=== PATIENT | male | born 1950 | race Caucasian/White ===

== ENCOUNTER 2019-10-07 18:14 | Inpatient (IN) ==
[2019-10-07] MEDS ORDERED: DOXYCYCLINE HYCLATE 100 MG in DEXTROSE 5% 100 ML IV STA (18:45)
[2019-10-07] MEDS ORDERED: ACETAMINOPHEN 1,000 MG/100 ML VIAL IV STA (18:45)
[2019-10-07] MEDS ORDERED: cefTRIAXone SODIUM 2,000 MG/70 ML BAG IV STA (18:45)
[2019-10-07] MEDS ORDERED: SODIUM CHLORIDE 0.9% 1000ML 2,000 ML IV ONE (18:48)
--- NOTE | 2019-10-07 18:55 | Emergency Department Note ---
Impression & Plan Sepsis, Transaminitis, Elevated erythrocyte sedimentation rate, Elevated C- reactive protein ED Provider Note NAME: KARYNA SALEH AGE: 69 SEX: M ARRIVES VIA: Walk-In INFORMANT: Patient, ED PROVIDER(S): Gabriele Damon MD CHIEF COMPLAINT: Fever x 2 weeks. 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 He does report having a CT scan of his abdomen on Wednesday as well but the report was not yet submitted on [facility]. He reports mild congestion but no productive cough or chest pain. He does report finding ticks on his person in the past month but not necessarily attached and certainly not on for a prolonged period of time. He reports that in his clinic his team has made an effort that he has not had to see patients with flulike symptoms with suspicion for COVID-19 and therefore he denies any known contacts with individuals diagnosed with COVID-19. On arrival the patient is fatigued appearing but no acute distress, with a temperature of 37.8, heart rate in the 110s, and hypotension 89/57. The patient appears clinically dry. Abdomen is benign. EKG without overt acute ischemia. Chest x- ray with increased peribronchial markings without focal infiltrates per my review. WBC 5.2 within normal limits. H/H 12.2/36 decreased but approximate to values in [facility] system. Platelets 149 improved from 100 on 09/27 and [facility] system. ESR and CRP are both elevated at 57 and 18, respectively, and are nonspecific. Chemistry without acidosis. BUN 23 consistent with the patient's clinically dry appearance. Lactate within normal limits. ALT is newly elevated at 120. However total bili Nick and AST within normal limits. Troponin 0.026, within normal limits. Lipase within normal limits. Pro calcitonin 0.4 is reassuring. Lyme screen was negative. COVID 19 PCR negative. Flu negative. Plasma smear review is pending and DNA test will be sent if negative. Given the patient's recent leukopenia and thrombocytopenia now with mild transaminitis with history of tick exposures there is suspicion for potential anaplasmosis. Patient was treated empirically on arrival with ceftriaxone and doxycycline. Of note we were able to obtain the CT report from [facility] which was read today and did show distended gallbladder that could represent early cholecystitis. However the patient has a negative Herrera sign. Moreover given the patient's normal bilirubin this is thought to be less likely. A formal gallbladder ultrasound was ordered and per preliminary stat read report was not consistent with cholecystitis. Additional findings noted below. On reevaluation the patient's vital signs were improved though patient still feeling unwell. Given the patient's prolonged illness of unclear etiology reasonable to admit the patient for further management. Case was discussed with Dr. De Jesus, [facility] hospitalist, who will evaluate the patient for admission. Triage Nursing notes reviewed and agree them. Additional history obtained from [facility] record. Prior medical records reviewed Vital Signs: reviewed and remarkable for hypotension. Differential diagnosis: Sepsis, UTI, pneumonia, metabolic, electrolyte abnormalities, cardiac sources, intracerebral event, toxicologic, neurologic, as well as other pathologies. ER treatment provided: See below. Diagnostics interpreted by me: ECG: Sinus tachycardia, 102 bpm, no ectopy, no overt ST elevation or depression, QTC 445, QRS 96. Cardiac Monitoring: An order for continuous cardiac monitoring was placed and demonstrated sinus tachycardia, 102 bpm, no ectopy. Laboratory studies: See below Imaging studies: Chest x-ray: increased monica-bronchial markings, no focal infiltrates. STATRAD: PreliminaryFindingsOnly See Final Report For Complete Findings US GALLBLADDER: There is a 1 cmsimple cyst in the left lobe of the liver. The liver is enlarged measuring 20.4 cmwith mildlyincreased echogenicitysuggesting mild fatty infiltration. The portal vein is patent with normal direction of flow. The common bile duct is upper limits of normal measuring 9 mm. The gallbladder is fullydistended with no stones, wall thickening, or surrounding fluid. Sonographic Murphysign is negative. The right kidneymeasures 12.4 cmwith mildlyincreased renal cortical echogenicitysuggesting some component of renal insufficiency. No hydronephrosis or mass is seen. Radiologist: Sohan Maynard MD Study ready at 22:31 and initial results transmitted at 22:46 Consultation(s): Case was discussed with Dr. De Jesus, [facility] hospitalist, who will evaluate the patient for admission. 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 He does report having a CT scan of his abdomen on Wednesday as well but the report was not yet submitted on [facility]. He reports mild congestion but no productive cough or chest pain. He does report finding ticks on his person in the past month but not necessarily attached and certainly not on for a prolonged period of time. He reports that in his clinic his team has made an effort that he has not had to see patients with flulike symptoms with suspicion for COVID-19 and therefore he denies any known contacts with individuals diagnosed with COVID-19. ROS: See above HPI for pertinent positives & negatives. A total of 10 systems reviewed and were otherwise negative. PAST MEDICAL HISTORY:See Below PAST SURGICAL HISTORY:See Below FAMILY HISTORY:See Below SOCIAL HISTORY:See Below HOME MEDICATIONS:See Below ALLERGIES:See Below VITALS:See Below PHYSICAL EXAMINATION: GENERAL: Awake, alert, fatigued-appearing, in no distress HENT: Normocephalic, atraumatic. Oropharynx with dry mucous membranes and otherwise unremarkable. EYES: Normal conjunctiva. Sclera non-icteric. NECK: Supple. No nuchal rigidity. FROM. No JVD. RESPIRATORY: Clear to auscultation. CARDIAC: Regular rate, normal rhythm. Extremities warm and well perfused. Pulses equal. ABDOMEN: Soft, non-distended. No tenderness to palpation. No rebound or guarding. No masses. RECTAL: Deferred. MUSCULOSKELETAL: Chest examination reveals no tenderness. The back is s ymmetrical on inspection without obvious abnormality. There is no CVA tenderness to palpation. No joint edema. LOWER EXTREMITIES: Calves are equal size bilaterally and non-tender. No edema. No discoloration. NEURO: Normal sensorium. No sensory or motor deficits noted. SKIN: No rash or jaundice noted. ED COURSE: Critical Care: I have personally spent greater than 55 minutes of critical care time in the direct management of this patient. This includes bedside care, interpretation of diagnostic studies, and testing, discussion with consultants, patient, and family members, and other required patient management activities. This 55 minutes is in excess of all separately billable procedures. Gabriele Damon MD Past Med/Surg History Medical History Helicobacter pylori (H. pylori) Social History Feels Safe at Home: Yes Smoking Status: Never smoker Allergies Allergies Allergy/AdvReac Type Severity Reaction Status Date / Time No Known Allergies Allergy Verified 10/07/19 20:30 Home Meds Home Medications Medication Instructions Recorded Confirmed atorvastatin 20 mg PO HS 10/07/19 10/07/19 Results & Data (ED) Vital Signs Vital Signs - 24 hr 10/07/19 18:17 10/07/19 19:14 10/07/19 19:17 Temperature 37.8 C H Temperature Source Oral Pulse Rate 118 H 104 H 103 H Pulse Rate [Apical] Pulse Rate from SpO2 Sensor 104 H 101 H Respiratory Rate 19 21 21 Respiratory Effort / Characteristics Respiratory Depth Blood Pressure 89/57 L 91/53 L Blood Pressure [Left Arm] Blood Pressure Mean 67 68 Blood Pressure Mean [Left Arm] Pulse Oximetry 95 95 95 Oxygen Delivery Method Sepsis Recent Fever Within 48 Hours Yes Sepsis Action Taken by Nursing No Action Required 10/07/19 19:30 10/07/19 19:40 10/07/19 20:00 Temperature Temperature Source Pulse Rate 99 H 100 H Pulse Rate [Apical] Pulse Rate from SpO2 Sensor 100 H 100 H Respiratory Rate 20 20 Respiratory Effort / Characteristics Respiratory Depth Blood Pressure Blood Pressure [Left Arm] Blood Pressure Mean Blood Pressure Mean [Left Arm] Pulse Oximetry 95 96 Oxygen Delivery Method Room Air Sepsis Recent Fever Within 48 Hours Sepsis Action Taken by Nursing 10/07/19 20:11 10/07/19 20:30 10/07/19 20:31 Temperature Temperature Source Pulse Rate 86 86 89 Pulse Rate [Apical] Pulse Rate from SpO2 Sensor 87 87 88 Respiratory Rate 17 17 18 Respiratory Effort / Characteristics Respiratory Depth Blood Pressure 104/52 L 114/66 Blood Pressure [Left Arm] Blood Pressure Mean 62 80 Blood Pressure Mean [Left Arm] Pulse Oximetry 97 97 98 Oxygen Delivery Method Sepsis Recent Fever Within 48 Hours Sepsis Action Taken by Nursing 10/07/19 21:14 10/07/19 22:26 10/07/19 22:57 Temperature 37.1 C Temperature Source Oral Pulse Rate Pulse Rate [Apical] 90 87 95 H Pulse Rate from SpO2 Sensor Respiratory Rate 18 18 20 Respiratory Effort / Characteristics Non-Labored Respiratory Depth Normal Normal Blood Pressure Blood Pressure [Left Arm] 109/62 110/68 132/76 Blood Pressure Mean Blood Pressure Mean [Left Arm] 77 82 94 Pulse Oximetry 95 95 97 Oxygen Delivery Method Room Air Room Air Room Air Sepsis Recent Fever Within 48 Hours Sepsis Action Taken by Nursing Laboratory Data Attestation: I reviewed the patient's lab results. Result diagrams: 10/07/19 19:29 10/07/19 19:29 Lab Results 10/07/19 10/07/19 10/07/19 Range/Units 19:29 19:29 19:29 WBC 5.24 (4.8-10.8) K/uL RBC 4.41 L (4.7-6.1) M/uL Hgb 12.2 L (14.0-18.0) g/dL POC Hgb (14.0-18.0) g/dl Hct 36.0 L (42-52) % POC Hct (42-52) % MCV 81.6 (80-100) fL MCH 27.7 (25-34) pg MCHC 33.9 (32-36) g/dL RDW Std Deviation 44.0 (36.4-46.3) fL RDW Coeff of Derick 14.7 H (11.5-14.5) % Plt Count 149 (130-400) K/uL MPV 9.5 (7.4-10.4) fL Immature Gran % (Auto) 0.4 % Neut % (Auto) 73.3 % Lymph % (Auto) 20.0 % [place] % (Auto) 5.5 % Eos % (Auto) 0.4 % Baso % (Auto) 0.4 % Neut # (Auto) 3.84 (1.4-6.5) K/uL Lymph # (Auto) 1.05 L (1.2-3.4) K/uL [place] # (Auto) 0.29 (0.11-0.59) K/uL Eos # (Auto) 0.02 (0-0.5) K/uL Baso # (Auto) 0.02 (0-0.2) K/uL Immature Gran # (Auto) 0.02 (0.00-0.02) K/uL Absolute Nucleated RBC 0.00 (0-0) K/uL Nucleated RBC % (auto) 0.0 % Echinocytes 1+ Peripher Smr Path Cons ESR (0-14) mm/hr PT 11.4 (9.0-12.0) Seconds INR 1.1 (0.9-1.1) APTT 41.6 H (21.0-31.0) Seconds PTT Ratio 1.5 VBG pH (7.36-7.41) VBG pCO2 (38-50) mmHg VBG pO2 mmHg VBG HCO3 mmol/L VBG O2 Saturation % VBG Base Excess mEq/L Barometric Pressure mm/Hg POC Sodium (135-144) mmol/L Sodium 136 (136-145) mmol/L POC Potassium (3.3-5.0) mmol/L Potassium 3.4 L (3.5-5.1) mmol/L POC Chloride (101-112) mmol/L Chloride 106 (98-107) mmol/L Carbon Dioxide 23 (21-32) mmol/L POC Total CO2 (24-31) mmol/L Anion Gap 7.0 (3-11) POC Anion Gap (16-25) mmol/L POC BUN (7-18) mg/dl BUN 23 H (7-18) mg/dl Creatinine 1.22 (0.6-1.4) mg/dl POC Creatinine (0.6-1.3) mg/dl Est Cr Clr Drug Dosing 59.0 ml/min Est GFR ( Amer) 69.7 Est GFR (Non-Af Amer) 60.1 BUN/Creatinine Ratio 19.2 (10-20) Glucose 106 H (70-99) mg/dl POC Glucose (other) (70-99) mg/dl Lactate (0.4-2.0) mmol/L Calcium 8.7 (8.5-10.1) mg/dl POC Ioniz Calcium Jorge (1.12-1.32) mmol/l Phosphorus 2.5 (2.5-4.9) mg/dl Magnesium 1.9 (1.8-2.4) mg/dl Total Bilirubin 0.6 (0.2-1) mg/dl Direct Bilirubin 0.2 (0-0.2) mg/dl AST 35 (15-37) U/L ALT 120 H (12-78) U/L Alkaline Phosphatase 139 H (45-117) U/L Total Creatine Kinase 104 (39-308) U/L Troponin I 0.026 (0-0.045) ng/ml C-Reactive Protein 18.30 H (0-0.29) mg/dl Total Protein 6.9 (6.4-8.2) gm/dl Albumin 2.8 L (3.4-5.0) gm/dl Globulin 4.1 H (2.5-4.0) gm/dl Albumin/Globulin Ratio 0.7 L (0.9-2) Lipase (73-393) U/L Procalcitonin (0-0.5) ng/ml Lyme Disease IgG Ab (Negative) Lyme Disease IgM Ab (Negative) COVID-19 PCR (Negative) Influenza Type A (PCR) (Neg) Influenza Type B (PCR) (Neg) SARS-CoV-2 RNA (RT-PCR) 10/07/19 10/07/19 10/07/19 Range/Units 19:29 19:29 19:29 WBC (4.8-10.8) K/uL RBC (4.7-6.1) M/uL Hgb (14.0-18.0) g/dL POC Hgb (14.0-18.0) g/dl Hct (42-52) % POC Hct (42-52) % MCV (80-100) fL MCH (25-34) pg MCHC (32-36) g/dL RDW Std Deviation (36.4-46.3) fL RDW Coeff of Derick (11.5-14.5) % Plt Count (130-400) K/uL MPV (7.4-10.4) fL Immature Gran % (Auto) % Neut % (Auto) % Lymph % (Auto) % [place] % (Auto) % Eos % (Auto) % Baso % (Auto) % Neut # (Auto) (1.4-6.5) K/uL Lymph # (Auto) (1.2-3.4) K/uL [place] # (Auto) (0.11-0.59) K/uL Eos # (Auto) (0-0.5) K/uL Baso # (Auto) (0-0.2) K/uL Immature Gran # (Auto) (0.00-0.02) K/uL Absolute Nucleated RBC (0-0) K/uL Nucleated RBC % (auto) % Echinocytes Peripher Smr Path Cons Cancelled ESR (0-14) mm/hr PT (9.0-12.0) Seconds INR (0.9-1.1) APTT (21.0-31.0) Seconds PTT Ratio VBG pH (7.36-7.41) VBG pCO2 (38-50) mmHg VBG pO2 mmHg VBG HCO3 mmol/L VBG O2 Saturation % VBG Base Excess mEq/L Barometric Pressure mm/Hg POC Sodium (135-144) mmol/L Sodium (136-145) mmol/L POC Potassium (3.3-5.0) mmol/L Potassium (3.5-5.1) mmol/L POC Chloride (101-112) mmol/L Chloride (98-107) mmol/L Carbon Dioxide (21-32) mmol/L POC Total CO2 (24-31) mmol/L Anion Gap (3-11) POC Anion Gap (16-25) mmol/L POC BUN (7-18) mg/dl BUN (7-18) mg/dl Creatinine (0.6-1.4) mg/dl POC Creatinine (0.6-1.3) mg/dl Est Cr Clr Drug Dosing ml/min Est GFR ( Amer) Est GFR (Non-Af Amer) BUN/Creatinine Ratio (10-20) Glucose (70-99) mg/dl POC Glucose (other) (70-99) mg/dl Lactate 0.8 (0.4-2.0) mmol/L Calcium (8.5-10.1) mg/dl POC Ioniz Calcium Jorge (1.12-1.32) mmol/l Phosphorus (2.5-4.9) mg/dl Magnesium (1.8-2.4) mg/dl Total Bilirubin (0.2-1) mg/dl Direct Bilirubin (0-0.2) mg/dl AST (15-37) U/L ALT (12-78) U/L Alkaline Phosphatase (45-117) U/L Total Creatine Kinase (39-308) U/L Troponin I (0-0.045) ng/ml C-Reactive Protein (0-0.29) mg/dl Total Protein (6.4-8.2) gm/dl Albumin (3.4-5.0) gm/dl Globulin (2.5-4.0) gm/dl Albumin/Globulin Ratio (0.9-2) Lipase (73-393) U/L Procalcitonin 0.40 (0-0.5) ng/ml Lyme Disease IgG Ab Negative (Negative) Lyme Disease IgM Ab Negative (Negative) COVID-19 PCR (Negative) Influenza Type A (PCR) (Neg) Influenza Type B (PCR) (Neg) SARS-CoV-2 RNA (RT-PCR) 10/07/19 10/07/19 10/07/19 Range/Units 19:29 19:29 19:34 WBC (4.8-10.8) K/uL RBC (4.7-6.1) M/uL Hgb (14.0-18.0) g/dL POC Hgb 13.3 L (14.0-18.0) g/dl Hct (42-52) % POC Hct 39 L (42-52) % MCV (80-100) fL MCH (25-34) pg MCHC (32-36) g/dL RDW Std Deviation (36.4-46.3) fL RDW Coeff of Derick (11.5-14.5) % Plt Count (130-400) K/uL MPV (7.4-10.4) fL Immature Gran % (Auto) % Neut % (Auto) % Lymph % (Auto) % [place] % (Auto) % Eos % (Auto) % Baso % (Auto) % Neut # (Auto) (1.4-6.5) K/uL Lymph # (Auto) (1.2-3.4) K/uL [place] # (Auto) (0.11-0.59) K/uL Eos # (Auto) (0-0.5) K/uL Baso # (Auto) (0-0.2) K/uL Immature Gran # (Auto) (0.00-0.02) K/uL Absolute Nucleated RBC (0-0) K/uL Nucleated RBC % (auto) % Echinocytes Peripher Smr Path Cons ESR 57 H (0-14) mm/hr PT (9.0-12.0) Seconds INR (0.9-1.1) APTT (21.0-31.0) Seconds PTT Ratio VBG pH (7.36-7.41) VBG pCO2 (38-50) mmHg VBG pO2 mmHg VBG HCO3 mmol/L VBG O2 Saturation % VBG Base Excess mEq/L Barometric Pressure mm/Hg POC Sodium 137 (135-144) mmol/L Sodium (136-145) mmol/L POC Potassium 3.4 (3.3-5.0) mmol/L Potassium (3.5-5.1) mmol/L POC Chloride 104 (101-112) mmol/L Chloride (98-107) mmol/L Carbon Dioxide (21-32) mmol/L POC Total CO2 20 L (24-31) mmol/L Anion Gap (3-11) POC Anion Gap 16.0 (16-25) mmol/L POC BUN 22 H (7-18) mg/dl BUN (7-18) mg/dl Creatinine (0.6-1.4) mg/dl POC Creatinine 1.2 (0.6-1.3) mg/dl Est Cr Clr Drug Dosing ml/min Est GFR ( Amer) Est GFR (Non-Af Amer) BUN/Creatinine Ratio (10-20) Glucose (70-99) mg/dl POC Glucose (other) 112 H (70-99) mg/dl Lactate (0.4-2.0) mmol/L Calcium (8.5-10.1) mg/dl POC Ioniz Calcium Jorge 1.13 (1.12-1.32) mmol/l Phosphorus (2.5-4.9) mg/dl Magnesium (1.8-2.4) mg/dl Total Bilirubin (0.2-1) mg/dl Direct Bilirubin (0-0.2) mg/dl AST (15-37) U/L ALT (12-78) U/L Alkaline Phosphatase (45-117) U/L Total Creatine Kinase (39-308) U/L Troponin I (0-0.045) ng/ml C-Reactive Protein (0-0.29) mg/dl Total Protein (6.4-8.2) gm/dl Albumin (3.4-5.0) gm/dl Globulin (2.5-4.0) gm/dl Albumin/Globulin Ratio (0.9-2) Lipase 174 (73-393) U/L Procalcitonin (0-0.5) ng/ml Lyme Disease IgG Ab (Negative) Lyme Disease IgM Ab (Negative) COVID-19 PCR (Negative) Influenza Type A (PCR) (Neg) Influenza Type B (PCR) (Neg) SARS-CoV-2 RNA (RT-PCR) 10/07/19 10/07/19 10/07/19 Range/Units 19:46 19:46 19:46 WBC (4.8-10.8) K/uL RBC (4.7-6.1) M/uL Hgb (14.0-18.0) g/dL POC Hgb (14.0-18.0) g/dl Hct (42-52) % POC Hct (42-52) % MCV (80-100) fL MCH (25-34) pg MCHC (32-36) g/dL RDW Std Deviation (36.4-46.3) fL RDW Coeff of Derick (11.5-14.5) % Plt Count (130-400) K/uL MPV (7.4-10.4) fL Immature Gran % (Auto) % Neut % (Auto) % Lymph % (Auto) % [place] % (Auto) % Eos % (Auto) % Baso % (Auto) % Neut # (Auto) (1.4-6.5) K/uL Lymph # (Auto) (1.2-3.4) K/uL [place] # (Auto) (0.11-0.59) K/uL Eos # (Auto) (0-0.5) K/uL Baso # (Auto) (0-0.2) K/uL Immature Gran # (Auto) (0.00-0.02) K/uL Absolute Nucleated RBC (0-0) K/uL Nucleated RBC % (auto) % Echinocytes Peripher Smr Path Cons ESR (0-14) mm/hr PT (9.0-12.0) Seconds INR (0.9-1.1) APTT (21.0-31.0) Seconds PTT Ratio VBG pH (7.36-7.41) VBG pCO2 (38-50) mmHg VBG pO2 mmHg VBG HCO3 mmol/L VBG O2 Saturation % VBG Base Excess mEq/L Barometric Pressure mm/Hg POC Sodium (135-144) mmol/L Sodium (136-145) mmol/L POC Potassium (3.3-5.0) mmol/L Potassium (3.5-5.1) mmol/L POC Chloride (101-112) mmol/L Chloride (98-107) mmol/L Carbon Dioxide (21-32) mmol/L POC Total CO2 (24-31) mmol/L Anion Gap (3-11) POC Anion Gap (16-25) mmol/L POC BUN (7-18) mg/dl BUN (7-18) mg/dl Creatinine (0.6-1.4) mg/dl POC Creatinine (0.6-1.3) mg/dl Est Cr Clr Drug Dosing ml/min Est GFR ( Amer) Est GFR (Non-Af Amer) BUN/Creatinine Ratio (10-20) Glucose (70-99) mg/dl POC Glucose (other) (70-99) mg/dl Lactate (0.4-2.0) mmol/L Calcium (8.5-10.1) mg/dl POC Ioniz Calcium Jorge (1.12-1.32) mmol/l Phosphorus (2.5-4.9) mg/dl Magnesium (1.8-2.4) mg/dl Total Bilirubin (0.2-1) mg/dl Direct Bilirubin (0-0.2) mg/dl AST (15-37) U/L ALT (12-78) U/L Alkaline Phosphatase (45-117) U/L Total Creatine Kinase (39-308) U/L Troponin I (0-0.045) ng/ml C-Reactive Protein (0-0.29) mg/dl Total Protein (6.4-8.2) gm/dl Albumin (3.4-5.0) gm/dl Globulin (2.5-4.0) gm/dl Albumin/Globulin Ratio (0.9-2) Lipase (73-393) U/L Procalcitonin (0-0.5) ng/ml Lyme Disease IgG Ab (Negative) Lyme Disease IgM Ab (Negative) COVID-19 PCR NEGATIVE (Negative) Influenza Type A (PCR) Neg for Influ A (Neg) Influenza Type B (PCR) Neg for Influ B (Neg) SARS-CoV-2 RNA (RT-PCR) Cancelled 10/07/19 Range/Units 19:56 WBC (4.8-10.8) K/uL RBC (4.7-6.1) M/uL Hgb (14.0-18.0) g/dL POC Hgb (14.0-18.0) g/dl Hct (42-52) % POC Hct (42-52) % MCV (80-100) fL MCH (25-34) pg MCHC (32-36) g/dL RDW Std Deviation (36.4-46.3) fL RDW Coeff of Derick (11.5-14.5) % Plt Count (130-400) K/uL MPV (7.4-10.4) fL Immature Gran % (Auto) % Neut % (Auto) % Lymph % (Auto) % [place] % (Auto) % Eos % (Auto) % Baso % (Auto) % Neut # (Auto) (1.4-6.5) K/uL Lymph # (Auto) (1.2-3.4) K/uL [place] # (Auto) (0.11-0.59) K/uL Eos # (Auto) (0-0.5) K/uL Baso # (Auto) (0-0.2) K/uL Immature Gran # (Auto) (0.00-0.02) K/uL Absolute Nucleated RBC (0-0) K/uL Nucleated RBC % (auto) % Echinocytes Peripher Smr Path Cons ESR (0-14) mm/hr PT (9.0-12.0) Seconds INR (0.9-1.1) APTT (21.0-31.0) Seconds PTT Ratio VBG pH 7.43 H (7.36-7.41) VBG pCO2 36 L (38-50) mmHg VBG pO2 35 mmHg VBG HCO3 23 mmol/L VBG O2 Saturation 68.2 % VBG Base Excess -0.7 mEq/L Barometric Pressure 726.7 mm/Hg POC Sodium (135-144) mmol/L Sodium (136-145) mmol/L POC Potassium (3.3-5.0) mmol/L Potassium (3.5-5.1) mmol/L POC Chloride (101-112) mmol/L Chloride (98-107) mmol/L Carbon Dioxide (21-32) mmol/L POC Total CO2 (24-31) mmol/L Anion Gap (3-11) POC Anion Gap (16-25) mmol/L POC BUN (7-18) mg/dl BUN (7-18) mg/dl Creatinine (0.6-1.4) mg/dl POC Creatinine (0.6-1.3) mg/dl Est Cr Clr Drug Dosing ml/min Est GFR ( Amer) Est GFR (Non-Af Amer) BUN/Creatinine Ratio (10-20) Glucose (70-99) mg/dl POC Glucose (other) (70-99) mg/dl Lactate (0.4-2.0) mmol/L Calcium (8.5-10.1) mg/dl POC Ioniz Calcium Jorge (1.12-1.32) mmol/l Phosphorus (2.5-4.9) mg/dl Magnesium (1.8-2.4) mg/dl Total Bilirubin (0.2-1) mg/dl Direct Bilirubin (0-0.2) mg/dl AST (15-37) U/L ALT (12-78) U/L Alkaline Phosphatase (45-117) U/L Total Creatine Kinase (39-308) U/L Troponin I (0-0.045) ng/ml C-Reactive Protein (0-0.29) mg/dl Total Protein (6.4-8.2) gm/dl Albumin (3.4-5.0) gm/dl Globulin (2.5-4.0) gm/dl Albumin/Globulin Ratio (0.9-2) Lipase (73-393) U/L Procalcitonin (0-0.5) ng/ml Lyme Disease IgG Ab (Negative) Lyme Disease IgM Ab (Negative) COVID-19 PCR (Negative) Influenza Type A (PCR) (Neg) Influenza Type B (PCR) (Neg) SARS-CoV-2 RNA (RT-PCR) Administered Medications Discontinued Medications Ceftriaxone Sodium (Rocephin) 2,000 mg in 70 mls @ 140 mls/hr IV NOW STA Stop: 10/07/19 19:14 Last Infusion: 10/07/19 20:30 Dose: 0 mls/hr Documented by: [id number] Admin: 10/07/19 20:11 Dose: 140 mls/hr Documented by: [id number] Doxycycline Hyclate 100 mg/ (Dextrose) 110 mls @ 50 mls/hr IV NOW STA Stop: 10/07/19 20:56 Last Infusion: 10/07/19 22:10 Dose: 0 mls/hr Documented by: [id number] Admin: 10/07/19 20:02 Dose: 50 mls/hr Documented by: [id number] Acetaminophen (Ofirmev) 1,000 mg in 100 mls @ 400 mls/hr IV NOW STA Stop: 10/07/19 18:59 Last Infusion: 10/07/19 20:30 Dose: 0 mls/hr Documented by: [id number] Admin: 10/07/19 20:02 Dose: 400 mls/hr Documented by: [id number] Sodium Chloride (Nss 1000ml) 2,000 mls @ 999 mls/hr IV .Q2H1M ONE Stop: 10/07/19 20:48 Last Infusion: 10/07/19 21:13 Dose: 0 mls/hr Documented by: [id number] Admin: 10/07/19 19:57 Dose: 999 mls/hr Documented by: [id number] Blood Pressure Blood Pressure Findings: Low blood pressure Blood Pressure Disposition: further management by hospitalist Discharge Plan Visit Data Chief Complaint: Fever Stated Complaint: FEVER FOR 12 DAYS, NEGATIVE COVID ED Provider: Gabriele Damon Discharge Problem: Sepsis, Transaminitis, Elevated erythrocyte sedimentation rate, Elevated C- reactive protein Forms Stand Alone Forms: My [facility] Prescriptions Prescriptions: No Action atorvastatin 20 mg tablet 20 mg PO HS RF: 0 Discharge Problem: Sepsis Qualifiers: Sepsis type: sepsis due to unspecified organism Sepsis acute organ dysfunction status: unspecified Qualified Code(s): A41.9 - Sepsis, unspecified organism
[2019-10-07 19:46] LABS: Basophils # (auto) 0.02 K/uL (0-0.2); Basophils % (auto) 0.4 %; Eosinophils # (auto) 0.02 K/uL (0-0.5); Eosinophils % (auto) 0.4 %; Hemoglobin 12.2 g/dL (14.0-18.0); Immature Granulocytes # (auto) 0.02 K/uL (0.00-0.02); Immature Granulocytes % (auto) 0.4 %; Lymphocytes # (auto) 1.05 K/uL (1.2-3.4); Mean Corpuscular Hemoglobin 27.7 pg (25-34); Mean Corpuscular Hgb Conc 33.9 g/dL (32-36); Mean Corpuscular Volume 81.6 fL (80-100); Mean Platelet Volume 9.5 fL (7.4-10.4); Monocytes # (auto) 0.29 K/uL (0.11-0.59); Monocytes % (auto) 5.5 %; Neutrophils # (auto) 3.84 K/uL (1.4-6.5); Neutrophils % (auto) 73.3 %; Platelet Count 149 K/uL (130-400); RDW Coefficient of Variation 14.7 % (11.5-14.5); Red Blood Count 4.41 M/uL (4.7-6.1); White Blood Count 5.24 K/uL (4.8-10.8)
[2019-10-07 19:47] LABS: iSTAT Creatinine 1.2 mg/dl (0.6-1.3); iSTAT Hemoglobin 13.3 g/dl (14.0-18.0); iSTAT Ionized Calcium 1.13 mmol/l (1.12-1.32); iSTAT Potassium 3.4 mmol/L (3.3-5.0)
[2019-10-07 19:58] LABS: INR 1.1 (0.9-1.1); Partial Thromboplastin Ratio 1.5; Partial Thromboplastin Time 41.6 Seconds (21.0-31.0); Prothrombin Time 11.4 Seconds (9.0-12.0)
[2019-10-07 20:03] LABS: Albumin Level 2.8 gm/dl (3.4-5.0); BUN Creatinine Ratio 19.2 (10-20); Bilirubin Direct 0.2 mg/dl (0-0.2); C Reactive Protein 18.3 mg/dl (0-0.29); Calcium 8.7 mg/dl (8.5-10.1); Est GFR (African American) 69.7; Est GFR (Non-African American) 60.1; Magnesium 1.9 mg/dl (1.8-2.4); Potassium 3.4 mmol/L (3.5-5.1)
[2019-10-07 20:07] LABS: Albumin Globulin Ratio 0.7 (0.9-2); Bilirubin,Total 0.6 mg/dl (0.2-1); Globulin 4.1 gm/dl (2.5-4.0); Phosphorus 2.5 mg/dl (2.5-4.9); Total Protein 6.9 gm/dl (6.4-8.2); Troponin I 0.026 ng/ml (0-0.045)
[2019-10-07 20:19] LABS: Base Excess VBG -0.7 mEq/L; Oxygen Saturation VBG 68.2 %; pH VBG 7.43 (7.36-7.41)
[2019-10-07 20:37] LABS: Echinocytes 1+
[2019-10-07 20:38] LABS: Lyme Ab IgG w/WB Rflx Negative (Negative); Lyme Ab IgM w/WB Rflx Negative (Negative)
[2019-10-07 20:43] LABS: Influenza A virus by PCR Neg for Influ A (Neg); Influenza B virus by PCR Neg for Influ B (Neg)
[2019-10-08] MEDS ORDERED: PIPERACILL/TAZOBAC CONSULT ACTIVE PRN
[2019-10-08] MEDS ORDERED: ONDANSETRON INJ 2 MG/ML 2 ML VIAL IV PRN (00:14)
--- NOTE | 2019-10-08 00:48 | History and Physical Report ---
DATE OF ADMISSION: 10/07/2019 CHIEF COMPLAINT: Febrile illness. HISTORY OF PRESENT ILLNESS: This is a 69-year-old male with past medical history significant for hyperlipidemia; elevated blood pressure, situational; history of Helicobacter pylori gastritis causing anemia; history of persistent insomnia, who presents with ongoing fevers. The patient is a physician. Around couple of weeks ago on Wednesday and Wednesday at work he felt severely cold. Did not have any fever. Then on Wednesday and he was so shaking, chills at workplace. Then next day, he had a mild temperature of 100.8 degrees and the patient's labs were done by his PCP, showed leukopenia and platelets were around 100. Electrolytes were okay. Rest of the labs were fine, but at that time there was no cough, no shortness of breath, no chest pain. Some nausea, but no other symptoms except for feeling empty in the stomach. . The patient was not exposed to COVID patient at workplace and COVID test was done on last Wednesday, it came back negative. The patient went to attend a marriage at [place]. Again, coming from the marriage, he was having spiking fevers like 103s, 102s degrees. Then the last couple of days, he has dry cough, an episode of diarrhea with floating stool, dark urine, and poor appetite. Having some headaches, but still no shortness of breath, no chest pain. Has mild headache. No blurred vision, no earache, no runny nose, no sore throat. No rash seen. Because of ongoing illness, came to the ER. CAT scan of the abdomen and pelvis was also done as outpatient on 10/04/2019 because of history of diverticulosis. It is showing distended gallbladder, may represent early cholecystitis. Today in the ER, had a temperature spike of 37.8. White count is normal. Blood pressure was on lower side and improved with fluids. Platelets improved to 149, hemoglobin 12.2. ESR 57. Venous blood gases are okay. Lactate was 0.8, AST was 35, ALT was 120, alkaline phosphatase 139. C-reactive protein 18. Procalcitonin 0.4, lipase 174. Lyme screen came back as negative and again repeat COVID test came back negative. Influenza A and B were negative. There is a question of tick-borne illness. The patient says because of the lock down, he was able to spend more time at home and helping his in the gardening work. They live in the [place]. He removed ticks about 4 years ago from his body, but at this time he did not see any ticks in his body, but he noticed 3 or 4 insect bites, not sure whether they are ticks or not. Currently, the patient received Rocephin and doxycycline and fluids in the ER and currently resting comfortably. ALLERGIES: No known drug allergies. PAST MEDICAL HISTORY: As mentioned above. PAST SURGICAL HISTORY: Colonoscopy with removal of 2 polyps, EGDs, left knee arthroscopy with repair of ligament. MEDICATIONS: On Lipitor 20 mg p.o. daily. FAMILY HISTORY: Significant for aunt has myeloma; maternal grandfather had Hodgkin's cancer; father had NE in 1974; paternal grandfather had CHF; maternal grandmother had CHF; mother had COPD; maternal grandmother had Alzheimer disease; paternal grandmother had stroke; mother had osteoporosis. SOCIAL HISTORY: . No smoking. Occasional alcohol use, no drug use. REVIEW OF SYSTEMS: As per HPI. Rest of the review of systems negative. PHYSICAL EXAMINATION: GENERAL: The patient is of moderate build, not in acute distress. VITAL SIGNS: Temperature T-max 37.8, pulse 95, respiratory rate 20, blood pressure 132/76, oxygen 97% on room air. HEENT: No pallor, no icterus. Pupils equal, round, and reactive to light. NECK: No JVD, no masses, no carotid bruit. CARDIOVASCULAR: S1, S2 heard, regular rate and rhythm, no murmur, no gallop. RESPIRATORY SYSTEM: Normal AP diameter. No accessory muscle use. No wheezing, no crackles. ABDOMEN: Soft, bowel sounds present, nontender. No distention, no guarding, no rigidity. CENTRAL NERVOUS SYSTEM: Cranial nerves II-XII grossly intact. Nonfocal. EXTREMITIES: No edema, no erythema. LABORATORY DATA: WBC 5.2, hemoglobin 12.2, hematocrit 36, platelets 149. ESR 57. PT 11.4, INR 1.1, APTT 41.6. Venous blood gases, pH of 7.4, pCO2 of 36, pO2 of 35, bicarbonate 23. Sodium 136, potassium 3.4, chloride 106, bicarbonate 23, BUN 23, creatinine 1.2, serum glucose 106, lactate 0.8, calcium 8.7, phosphorus 2.5, magnesium 1.9, total bilirubin 0.6, direct bilirubin 0.2, AST 35, ALT 120, alkaline phosphatase 139. Total creatinine kinase 104. C-reactive protein 18.3, lipase 174. Procalcitonin 0.4. Lyme disease, IgM and IgG negative. COVID-19 PCR negative. Influenza A and B negative. IMAGING DATA: Chest x-ray, no acute findings seen. Gallbladder ultrasound results are pending. ASSESSMENT AND PLAN: This is a 69-year-old male who presents with ongoing febrile illness since about last 12 days. 1. Febrile illness ongoing for last 12 days. COVID test done today and also last Wednesday were negative. Initially in the lab workup, the patient had leukopenia and low platelets but LFTs are okay now. Today White count and platelets are improved, but has ALT and alkaline phosphatase elevated. CAT scan as an outpatient on 10/04/2019 showed gallbladder distention, possible cholecystitis. Ultrasound done in the ER is pending. There is a question of tick bites because the patient lives in the [facility] and because last labs showing leukopenia and low platelets and now showing elevated LFTs, possibly anaplasmosis, possible Lyme disease. Though initial Lyme screen was negative here, there is question of some insect bites. Received Rocephin and doxycycline in the ER. For now, we will empirically treat for tick-borne illness with IV doxycycline. Until further evaluation for the gallbladder disease, we will place him on IV Zosyn, n.p.o., IV fluids, and consult surgery in the a.m. Closely monitor in the medical floor. 2. History of hyperlipidemia. Continue statin. 3. History of Helicobacter pylori gastritis. 4. Anemia in the past. Hemoglobin is 12.2. Follow up with the PCP with repeat labs. 5. Deep venous thrombosis prophylaxis, sequential compression devices for now. 6. Disposition: Closely monitor in the medical floor. Level 1 full code. MTDD
[2019-10-08 00:55] LABS: Appearance Urine Clear (Clear); Bacteria Urine Automated Negative (Negative); Blood Urine Negative (Negative); Color Urine Dark Yellow; Epithelial Cell Urine Auto >30 /lpf (0-5); Glucose Urine UA Negative (Negative); Ketones Urine 1+ (Negative); Leukocyte Esterase Urine Negative (Negative); Nitrite Urine Negative (Negative); Protein Urine 1+ (Negative); Specific Gravity Urine 1.034 (1.000-1.030); Urobilinogen Urine Negative (Negative)
[2019-10-08] MEDS ORDERED: PIPERACILLIN/TAZOBACTAM 3.375 GM in DEXTROSE 5% 100 ML IV SCH ×2 (01:00)
[2019-10-08 01:04] LABS: Bilirubin Urine Negative (Negative); Ictotest Urine Negative (Negative)
[2019-10-08] MEDS: D5W AND NSS 1,000 ML IV SCH ×3 (01:04→20:30)
[2019-10-08] MEDS: PIPERACILLIN/TAZOBACTAM 3.375 GM in DEXTROSE 5% 100 ML IV SCH ×3 (05:51→21:11)
[2019-10-08] MEDS: ACETAMINOPHEN 325 MG TAB PO PRN ×2 (05:51→15:50)
[2019-10-08 05:52] LABS: Basophils # (auto) 0.04 K/uL (0-0.2); Eosinophils # (auto) 0.04 K/uL (0-0.5); Hematocrit (blood only) 33.9 % (42-52); Hemoglobin 11.3 g/dL (14.0-18.0); Immature Granulocytes # (auto) 0.01 K/uL (0.00-0.02); Immature Granulocytes % (auto) 0.3 %; Lymphocytes # (auto) 1.42 K/uL (1.2-3.4); Lymphocytes % (auto) 36.2 %; Mean Corpuscular Hemoglobin 27.4 pg (25-34); Mean Corpuscular Hgb Conc 33.3 g/dL (32-36); Mean Corpuscular Volume 82.1 fL (80-100); Mean Platelet Volume 9.8 fL (7.4-10.4); Monocytes # (auto) 0.42 K/uL (0.11-0.59); Monocytes % (auto) 10.7 %; Neutrophils # (auto) 1.99 K/uL (1.4-6.5); Neutrophils % (auto) 50.8 %; Platelet Count 152 K/uL (130-400); RDW Coefficient of Variation 15.1 % (11.5-14.5); Red Blood Count 4.13 M/uL (4.7-6.1); White Blood Count 3.92 K/uL (4.8-10.8)
--- NOTE | 2019-10-08 06:03 | XRay Report ---
XR chest 1V portable CLINICAL HISTORY: SEPSIS dyspnea COMPARISON STUDY: No previous studies for comparison. FINDINGS: The bones soft tissues and hemidiaphragms are normal. The cardiomediastinal silhouette is n ormal. The lungs are clear. The pulmonary vasculature is normal. IMPRESSION: Negative chest. ACT 112: Negative or not required by law. The above report was generated using voice recognition software. It may contain grammatical, syntax or spelling errors. Electronically signed by: Christinao Bonds M.D. 10/08/2019 6:01 AM
[2019-10-08 06:32] LABS: Albumin Level 2.3 gm/dl (3.4-5.0); BUN Creatinine Ratio 20.1 (10-20); Bilirubin Direct 0.1 mg/dl (0-0.2); Bilirubin,Total 0.5 mg/dl (0.2-1); Creatinine Clr Calc Pharmacy 80.5 ml/min; Est GFR (African American) 101.6; Est GFR (Non-African American) 87.6; Magnesium 1.9 mg/dl (1.8-2.4); Potassium 3.5 mmol/L (3.5-5.1); Total Protein 6.1 gm/dl (6.4-8.2)
--- NOTE | 2019-10-08 06:33 | Ultrasound Report ---
US gallbladder HISTORY: Nausea. Fever. fever, nausea, elevated AST and ALT COMPARISON: None. FINDINGS: Mild gallbladder distention. No shadowing gallstones. Common bile duct 9 mm. Liver is uniform throughout. Pancreas is unremarkable. The right kidney is negative for hydronephrosi s. IMPRESSION: 1. Moderate gallbladder distention.. 2. Prominence of the common bile duct at 9 mm. 3. Otherwise negative study. ACT 112: Negative or not required by law. The above report was generated using voice recognition software. It may contain grammatical, syntax or spelling errors. Electronically signed by: Christiano Bonds M.D. 10/08/2019 6:31 AM
[2019-10-08 08:03] LABS: Anaplasmosis Smear(Rpt to DOH) Pos for Anaplasma
--- NOTE | 2019-10-08 08:39 | Surgery Consultation ---
Date of Consultation October 08, 2019 Assessment & Plan (1) Sepsis: This is a 69y M with a PMH of h.pylori and IBS who presented to the [facility] ED on 10/07/19 with fevers, chills, and anorexia. Currently patient has generalized soreness of the abdomen he believes is musculoskeletal in nature due to recent coughing. He is not acutely tender to palpation and abdomen is soft and non distended. LFTs today show WBC: 3.9, Tb: 0.5, Db: 0.1, AST: 28, ALT: 91, Alkp:117. RUQ US is not concerning for acute cholecystitis. Patient was tested for Covid, the flu, lyme, and anaplasmosis of which Anaplasmosis returned positive. Anaplasmosis seems to be the main culprit of his symptoms. Agree with abx treatment for tick-borne illness. No concern for gallbladder etiology at this time. Please call back if there are any questions/concerns. Patient seen and examined with Dr. Pulido. Supervising Physician Co-Signing Physician Notes no abdominal findings suspect disease process viral in nature gallbladder does not appear to be the cause of his symp will follow History of Present Illness Attending Physician: Anel Pope MD History of Present Illness This is a 69y M with a PMH of h.pylori and IBS who presented to the [facility] ED on 10/07/19 with fevers, chills, and anorexia. Patient reports his symptoms started last Wednesday and Wednesday where he noted he was cold and shaking with chills. He had wearing more layers of clothes at work despite adjusting the thermostat. In addition to the chills patient noted that he did not have much of an appetite. Between - patient noted had a temp of 101.8F. He denied any sore throat, cough, nausea/vomiting, diarrhea, or abdominal pain. He underwent a CT scan at [facility] in addition to some blood work as the patient was concerned for possible h.pylori of which he was treated for in the past. A COVID test was obtained which returned negative. He went to a wedding in [place] on Wednesday where he continued to spiking fevers >103F & a cough. He subsequently came to the ED yesterday for further evaluation. OSH report of CT scan noted a distended gallbladder, and labs here showed ALT:120 and ALKP elevated to 139. Surgery was consulted for further evaluation to rule out potential gallbladder etiology as the cause of his symptoms. Patient denies any back pain and has some abdominal pain, but believes it to be musculoskeletal in nature. Patient also notes that he has been in the garden more and has seen insect bites, but unsure if they were from a tick because he did not physically see them. Allergies Allergy/AdvReac Type Severity Reaction Status Date / Time No Known Allergies Allergy Verified 10/07/19 20:30 Home Medications Home Medications Medication Instructions Recorded Confirmed Type atorvastatin 20 mg PO HS 10/07/19 10/07/19 History Patient History Medical History Helicobacter pylori (H. 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 Beliefs That Will Affect Care: None Current Living Situation: Spouse Feels Safe at Home: Yes Safety Concerns: Feels Safe At This Time Smoking Status: Never smoker Hx Alcohol Use: No Hx Substance Use: No Review of Systems Constitutional: + fever, + chills, + weakness and + anorexia Ear, Nose, Mouth, Throat: no nasal discharge and no sore throat Respiratory: + cough Gastrointestinal: + abdominal pain (generalized soreness); no nausea, no vomiting and no diarrhea/loose stools Neurologic: + headache(s) Physical Exam Physical Exam: awake/alert Respiratory: normal respiratory effort Gastrointestinal (Abdomen): Inspection/Auscultation: abdomen not distended Percussion/Palpation: abdomen soft; abdomen nontender Results & Data Vital Signs (Past 12 Hours) Vital Signs Temp Pulse Pulse Resp BP Pulse Ox 10/08/19 06:18 36.9 C 78 15 120/70 97 10/08/19 00:23 36.7 C 97 H 16 129/79 98 10/07/19 23:40 85 20 125/77 95 10/07/19 22:57 95 H 20 132/76 97 10/07/19 22:26 87 18 110/68 95 10/07/19 21:14 37.1 C 90 18 109/62 95 US gallbladder HISTORY: Nausea. Fever. fever, nausea, elevated AST and ALT COMPARISON: None. FINDINGS: Mild gallbladder distention. No shadowing gallstones. Common bile duct 9 mm. Liver is uniform throughout. Pancreas is unremarkable. The right kidney is negative for hydronephrosis. IMPRESSION: 1. Moderate gallbladder distention.. 2. Prominence of the common bile duct at 9 mm. 3. Otherwise negative study. ACT 112: Negative or not required by law. The above report was generated using voice recognition software. It may contain grammatical, syntax or spelling errors. Electronically signed by: Christiano Bonds M.D. 10/08/2019 6:31 AM PG Care Time/CCT Total # of Minutes Spent Total Time Spent with Patient: Total time spent is greater than 50% in coordination of care (as documented) at patient's floor/unit and/or counseling patient: Coding Level of Care Code 63650 Inpt Consult Level 4 Diagnoses Sepsis A41.9 Sepsis acute organ dysfunction status: unspecified Sepsis type: sepsis due to unspecified organism (1) Sepsis Sepsis acute organ dysfunction status: unspecified Sepsis type: sepsis due to unspecified organism Qualified Code(s): A41.9 - Sepsis, unspecified organism
[2019-10-08] MEDS: DOXYCYCLINE HYCLATE 100 MG in DEXTROSE 5% 100 ML IV SCH ×2 (09:36→21:11)
[2019-10-08] MEDS ORDERED: VANCOMYCIN HCL 1,000 MG/270 ML BAG IV STA (14:12)
[2019-10-08] MEDS ORDERED: VANCOMYCIN CONSULT ACTIVE PRN (14:12)
[2019-10-08] MEDS ORDERED: VANCOMYCIN HCL 1,750 MG in SODIUM CHLORIDE 0.9% 500 ML IV STA (14:23)
--- NOTE | 2019-10-08 15:07 | Hospitalist Progress Note ---
Date of Service October 08, 2019 Assessment & Plan (1) Anaplasmosis: Presented with febrile illness for about 12 days Recent exposure to possible ticks and other insect Extremely tired with fever and chills Peripheral smear did show inclusion bodies suggestive of anaplasmosis Has been on intravenous doxycycline and ceftriaxone Clinically little bit better and will continue current medications (2) Sepsis: Possible sepsis at presentation with tachycardia, fever and neutropenia Blood culture grew gram-positive cocci in clusters 1 bottle Received 1 dose of intravenous vancomycin and awaiting further culture results No other infective source noted but CRP was elevated at 18.30 (3) Transaminitis: Noted to have transaminitis with elevated ALT and alkaline phosphatase We will monitor DVT prophylaxis SCDs Admission and Anticipated Discharge Date Admission Date: October 07, 2019 Subjective The patient was seen and examined in medical floor He was admitted with weakness and tiredness for a few days fever with chills since yesterday and extreme tiredness Has been feeling a little better since admission Denies any significant pain but complains today of extreme tiredness Review of Systems Review of Systems: All systems reviewed and are unremarkable except as noted below Neurologic: + generalized weakness Physical Exam Physical Exam: Lying in bed comfortably but anxious Constitutional: well developed, well nourished and + ill appearing; no acute distress Eyes: PERRL, conjunctivae normal, anicteric sclerae ENMT: external ear and nose normal, oropharynx normal Neck: trachea midline, no thyromegaly Respiratory: normal respiratory effort, lungs clear to auscultation Cardiovascular: Rate/Rhythm: regular rate and regular rhythm Heart Sounds: no murmur Gastrointestinal (Abdomen): Inspection/Auscultation: abdomen normal to inspection and normal bowel sounds; abdomen not distended Percussion/Palpation: abdomen soft; abdomen nontender Musculoskeletal: No acute arthritis involving any joints Neurologic: moves all extremities; no focal motor deficits Remains extremely tired Results & Data Results & Data ([facility]) Vital Signs (Past 12 Hours) Vital Signs Temp Pulse Resp BP Pulse Ox 10/08/19 06:18 36.9 C 78 15 120/70 97 Laboratory Results Short CBC 10/07/19 10/08/19 Range/Units 19:29 05:10 WBC 5.24 3.92 L (4.8-10.8) K/uL Hgb 12.2 L 11.3 L (14.0-18.0) g/dL Hct 36.0 L 33.9 L (42-52) % Plt Count 149 152 (130-400) K/uL BMP 10/07/19 10/08/19 19:29 05:10 Sodium 136 139 Potassium 3.4 L 3.5 Chloride 106 109 H Carbon Dioxide 23 25 BUN 23 H 18 Creatinine 1.22 0.88 D Glucose 106 H 114 H Calcium 8.7 8.0 L Cardiac Enzymes 10/07/19 Range/Units 19:29 Total Creatine Kinase 104 (39-308) U/L Troponin I 0.026 (0-0.045) ng/ml Liver Function 10/07/19 10/08/19 Range/Units 19:29 05:10 Total Bilirubin 0.6 0.5 (0.2-1) mg/dl Direct Bilirubin 0.2 0.1 (0-0.2) mg/dl AST 35 28 (15-37) U/L ALT 120 H 91 H (12-78) U/L Alkaline Phosphatase 139 H 117 (45-117) U/L Albumin 2.8 L 2.3 L (3.4-5.0) gm/dl Urine 10/08/19 Range/Units 00:15 Urine Color Dark Yellow Urine Appearance Clear (Clear) Urine pH 5.0 (4.5-7.5) Ur Specific [place] 1.034 H (1.000-1.030) Urine Protein 1+ H (Negative) Urine Glucose (UA) Negative (Negative) Medications Administered Current Inpatient Medications Acetaminophen (Tylenol) 650 mg PO Q4H PRN PRN Reason: pain/fever Stop: 11/07/19 00:13 Last Admin: 10/08/19 05:51 Dose: 650 mg Documented by: Atorvastatin Calcium (Lipitor) 20 mg PO HS VIN Stop: 11/07/19 20:59 Dextrose/Sodium Chloride (D5w And Nss) 1,000 mls @ 125 mls/hr IV .Q8H VIN Stop: 11/07/19 00:00 Last Admin: 10/08/19 09:42 Dose: 125 mls/hr Documented by: Doxycycline Hyclate 100 mg/ (Dextrose) 110 mls @ 50 mls/hr IV Q12H VIN Stop: 10/22/19 08:59 Last Infusion: 10/08/19 12:03 Dose: Infused Documented by: Piperacillin Sod/Tazobactam (Sod 3.375 gm/ Dextrose) 115 mls @ 30 mls/hr IV Q8H VIN; Protocol Stop: 10/18/19 05:59 Last Admin: 10/08/19 14:17 Dose: 30 mls/hr Documented by: Vancomycin HCl 1,750 mg/ (Sodium Chloride) 535 mls @ 200 mls/hr IV NOW STA Stop: 10/08/19 17:03 Miscellaneous Information (Consult) 1 ea N/A UD PRN PRN Reason: Consult Stop: 11/07/19 00:00 Miscellaneous Information (Consult) 1 ea N/A UD PRN PRN Reason: Consult Stop: 11/07/19 14:11 Ondansetron HCl (Zofran) 4 mg IV Q6H PRN PRN Reason: Nausea Stop: 11/07/19 00:13 (1) Sepsis Sepsis acute organ dysfunction status: unspecified Sepsis type: sepsis due to unspecified organism Qualified Code(s): A41.9 - Sepsis, unspecified organism
--- NOTE | 2019-10-08 16:20 | Pharmacy Report ---
Pharmacy Abx Initial Consult - Date of Service October 08, 2019 - Pharmacy Dosing Scope Date of Consult: 10/08/19 Consultation requested by: Dr. Pope Pharmacy is consulted to initiate Vancomycin and Zosyn IV/PO dosing therapy, order appropriate labs and adjust drug dose/frequency. - Subjective The patient is a 69 year old M admitted on 10/07/19 23:07. - Objective Height: 5 ft 10 in Weight: 71.8 kg Vital Signs (Past 12hrs): Vital Signs Temp Pulse Resp BP Pulse Ox 10/08/19 15:33 36.8 C 76 17 120/73 98 10/08/19 06:18 36.9 C 78 15 120/70 97 Lab Results (24hrs): Laboratory Tests (24 Hours) 10/08/19 10/08/19 10/07/19 05:10 05:10 19:29 WBC 3.92 L Neut # (Auto) 1.99 ESR 57 H Creatinine 0.88 D Est Cr Clr Drug Dosing 80.5 Total Creatine Kinase C-Reactive Protein Procalcitonin 10/07/19 10/07/19 10/07/19 19:29 19:29 19:29 WBC 5.24 Neut # (Auto) 3.84 ESR Creatinine 1.22 Est Cr Clr Drug Dosing 59.0 Total Creatine Kinase 104 C-Reactive Protein 18.30 H Procalcitonin 0.40 Micro Results: 10/07/19 19:56 Anaerobic Blood Culture - Pending Blood 10/07/19 19:29 Aerobic Blood Culture - Pending Blood Anaerobic Blood Culture - Pending - Assessment & Plan Assessment 69 year old M presenting with febrile illness for about 12 days. Has been on Doxy and Rocephin for Anaplasmosis. Blood cultures 1/2 growing GPC and other culture still pending. Plan Vancomycin and Zosyn for treatment of Bacteremia Vancomycin IV Patient meets criteria for vancomycin AUC dosing nomogram AUC/DAVE is the preferred PK/PD target for vancomycin Target AUC/DAVE = 400-600 AUC guided dosing is effective and associated with decreased risk of nephrotoxicity * Estimated PK Parameters: Vd 0.7 L/kg, Flako 0.07 hr-1, t1/2 10 hr * Loading dose: 1750 mg (24.6 mg/kg) * Maintenance dose: 1250 mg IV (17 mg/kg) every 12 hours * Goal trough level for Bacteremia: 15 to 20 mcg/mL * Trough level ordered for 6/30/20 at 0330 Piperacillin/tazobactam * 3.375 g bolus administered over 30 minutes, then 3.375 g IV extended infusion every 8 hours for CrCl greater than 20 mL/min Pharmacy will continue to follow and will adjust dose/frequency as necessary. Thank you.
[2019-10-08] MEDS: ATORVASTATIN 20 MG TAB PO SCH (21:11)
[2019-10-09] MEDS: ACETAMINOPHEN 325 MG TAB PO PRN ×3 (00:09→19:13)
[2019-10-09] MEDS ORDERED: VANCOMYCIN HCL 1,250 MG in SODIUM CHLORIDE 0.9% 250 ML IV SCH (04:00)
[2019-10-09] MEDS: D5W AND NSS 1,000 ML IV SCH ×2 (05:26→14:41)
[2019-10-09] MEDS: PIPERACILLIN/TAZOBACTAM 3.375 GM in DEXTROSE 5% 100 ML IV SCH (05:43)
[2019-10-09 06:08] LABS: Hematocrit (blood only) 33.6 % (42-52); Hemoglobin 10.7 g/dL (14.0-18.0); Mean Corpuscular Hemoglobin 26.6 pg (25-34); Mean Corpuscular Hgb Conc 31.8 g/dL (32-36); Mean Corpuscular Volume 83.4 fL (80-100); Platelet Count 196 K/uL (130-400); RDW Coefficient of Variation 15.1 % (11.5-14.5); RDW Standard Deviation 46.7 fL (36.4-46.3); Red Blood Count 4.03 M/uL (4.7-6.1); White Blood Count 3.89 K/uL (4.8-10.8)
[2019-10-09 06:49] LABS: Albumin Globulin Ratio 0.6 (0.9-2); Albumin Level 2.1 gm/dl (3.4-5.0); BUN Creatinine Ratio 11.2 (10-20); Bilirubin,Total 0.3 mg/dl (0.2-1); Calcium 7.9 mg/dl (8.5-10.1); Creatinine Clr Calc Pharmacy 87.4 ml/min; Est GFR (African American) 105.1; Est GFR (Non-African American) 90.7; Globulin 3.6 gm/dl (2.5-4.0); Magnesium 1.9 mg/dl (1.8-2.4); Phosphorus 2.4 mg/dl (2.5-4.9); Potassium 3.2 mmol/L (3.5-5.1); Total Protein 5.7 gm/dl (6.4-8.2)
[2019-10-09 06:58] LABS: ALC (manual) 2.49 K/uL (1.2-3.4); ANC (manual) 1.16 K/uL (1.4-6.5); Basophils # (manual) 0.07 K/uL (0-0.2); Basophils % (manual) 1.8 %; Eosinophils # (manual) 0.14 K/uL (0-0.5); Eosinophils % (manual) 3.5 %; Lymphocytes # (manual) 0.75 K/uL (1.2-3.4); Lymphocytes % (manual) 19.3 %; Monocytes # (manual) 0.04 K/uL (0.11-0.59); Monocytes % (manual) 0.9 %; Neutrophils # (manual) 1.16 K/uL (1.4-6.5); Neutrophils % (manual) 29.8 %; RBC Morphology Unremarkable; Reactive Lymphocytes # (manual) 1.74 K/uL; Reactive Lymphocytes % (manual) 44.7 %
[2019-10-09] MEDS ORDERED: POTASSIUM PHOS 3 MMOL/1 ML INFUSION IV STA (08:51)
[2019-10-09] MEDS ORDERED: POTASSIUM PHOSPHATE 30 MMOL in SODIUM CHLORIDE 0.9% 500 ML IV ONE (09:15)
[2019-10-09] MEDS: DOXYCYCLINE HYCLATE 100 MG in DEXTROSE 5% 100 ML IV SCH ×2 (09:37→19:13)
--- NOTE | 2019-10-09 13:17 | Hospitalist Progress Note ---
Date of Service October 09, 2019 Assessment & Plan (1) Anaplasmosis: Presented with febrile illness for about 12 days Recent exposure to possible ticks and other insect Extremely tired with fever and chills Peripheral smear did show inclusion bodies suggestive of anaplasmosis Has been on intravenous doxycycline and ceftriaxone Clinically little bit better and will continue current medications Lot better today, no fever, weakness is improved We will get PT and send him home this afternoon (2) Sepsis: Possible sepsis at presentation with tachycardia, fever and neutropenia Blood culture grew gram-positive cocci in clusters 1 bottle Received 1 dose of intravenous vancomycin and awaiting further culture results No other infective source noted but CRP was elevated at 18.30 Blood culture grew coagulase-negative staph in 1 bottle Received 2 doses of IV vancomycin Is likely contaminant Will discontinue vancomycin (3) Transaminitis: Noted to have transaminitis with elevated ALT and alkaline phosphatase We will monitor-blood function is normalized DVT prophylaxis SCDs Admission and Anticipated Discharge Date Admission Date: October 07, 2019 Anticipated date of discharge: 10/09/19 Subjective The patient was seen and examined in medical floor He was admitted with weakness and tiredness for a few days fever with chills since yesterday and extreme tiredness Has been feeling a little better since admission Denies any significant pain but complains today of extreme tiredness 10/09/2019 The patient was seen and examined in medical floor He has been feeling a lot better today though remains generally weak No fever since admission Denies any abdominal pain, nausea or vomiting, any chest pain or palpitation Review of Systems Review of Systems: All systems reviewed and are unremarkable except as noted below Neurologic: + generalized weakness Physical Exam Physical Exam: Lying in bed comfortably Constitutional: well developed, well nourished and + ill appearing; no acute distress Eyes: PERRL, conjunctivae normal, anicteric sclerae ENMT: external ear and nose normal, oropharynx normal Neck: trachea midline, no thyromegaly Respiratory: normal respiratory effort; no respiratory distress Auscultation: lungs clear to auscultation bilaterally Cardiovascular: Rate/Rhythm: regular rate and regular rhythm Heart Sounds: no murmur Gastrointestinal (Abdomen): Inspection/Auscultation: abdomen normal to inspection and normal bowel sounds; abdomen not distended Percussion/Palpation: abdomen soft; abdomen nontender Musculoskeletal: No acute arthritis involving any joint Skin: No rash anywhere in the body Neurologic: moves all extremities; no focal motor deficits Lymphatic: no cervical or axillary lymphadenopathy Results & Data Results & Data ([facility]) Vital Signs (Past 12 Hours) Vital Signs Temp Pulse Resp BP Pulse Ox 10/09/19 07:47 36.7 C 65 16 112/67 97 Laboratory Results Short CBC 10/09/19 Range/Units 05:26 WBC 3.89 L (4.8-10.8) K/uL Hgb 10.7 L (14.0-18.0) g/dL Hct 33.6 L (42-52) % Plt Count 196 (130-400) K/uL BMP 10/09/19 05:26 Sodium 142 Potassium 3.2 L Chloride 112 H Carbon Dioxide 27 BUN 9 D Creatinine 0.81 Glucose 115 H Calcium 7.9 L Liver Function 10/09/19 Range/Units 05:26 Total Bilirubin 0.3 (0.2-1) mg/dl AST 25 (15-37) U/L ALT 71 (12-78) U/L Alkaline Phosphatase 103 (45-117) U/L Albumin 2.1 L (3.4-5.0) gm/dl Medications Administered Current Inpatient Medications Acetaminophen (Tylenol) 650 mg PO Q4H PRN PRN Reason: pain/fever Stop: 11/07/19 00:13 Last Admin: 10/09/19 07:50 Dose: 650 mg Documented by: Atorvastatin Calcium (Lipitor) 20 mg PO HS VIN Stop: 11/07/19 20:59 Last Admin: 10/08/19 21:11 Dose: 20 mg Documented by: Dextrose/Sodium Chloride (D5w And Nss) 1,000 mls @ 100 mls/hr IV .Q10H VIN Stop: 11/07/19 00:00 Last Infusion: 10/09/19 09:37 Dose: 100 mls/hr Documented by: Doxycycline Hyclate 100 mg/ (Dextrose) 110 mls @ 50 mls/hr IV Q12H VIN Stop: 10/22/19 08:59 Last Infusion: 10/09/19 12:11 Dose: Infused Documented by: Potassium Phosphate 30 mmol/ (Sodium Chloride) 510 mls @ 102 mls/hr IV TODAY@0915 ONE Stop: 10/09/19 14:14 Last Admin: 10/09/19 09:37 Dose: 102 mls/hr Documented by: Ondansetron HCl (Zofran) 4 mg IV Q6H PRN PRN Reason: Nausea Stop: 11/07/19 00:13 (1) Sepsis Sepsis acute organ dysfunction status: unspecified Sepsis type: sepsis due to unspecified organism Qualified Code(s): A41.9 - Sepsis, unspecified organism
[2019-10-09] MEDS: ATORVASTATIN 20 MG TAB PO SCH (20:50)
[2019-10-10] MEDS ORDERED: VANCOMYCIN TROUGH ONE (03:30)
--- NOTE | 2019-10-10 07:56 | Discharge Summary ---
Date of Service October 10, 2019 Admission HPI Per Admitting Provider DICTATED BY: Ian De Jesus MD DATE OF ADMISSION: 10/07/2019 CHIEF COMPLAINT: Febrile illness. HISTORY OF PRESENT ILLNESS: This is a 69-year-old male with past medical history significant for hyperlipidemia; elevated blood pressure, situational; history of Helicobacter pylori gastritis causing anemia; history of persistent insomnia, who presents with ongoing fevers. The patient is a physician. Around couple of weeks ago on Wednesday and Wednesday at work he felt severely cold. Did not have any fever. Then on Wednesday and he was so shaking, chills at workplace. Then next day, he had a mild temperature of 100.8 degrees and the patient's labs were done by his PCP, showed leukopenia and platelets were around 100. Electrolytes were okay. Rest of the labs were fine, but at that time there was no cough, no shortness of breath, no chest pain. Some nausea, but no other symptoms except for feeling empty in the stomach. . The patient was not exposed to COVID patient at workplace and COVID test was done on last Wednesday, it came back negative. The patient went to attend a marriage at [place]. Again, coming from the marriage, he was having spiking fevers like 103s, 102s degrees. Then the last couple of days, he has dry cough, an episode of diarrhea with floating stool, dark urine, and poor appetite. Having some headaches, but still no shortness of breath, no chest pain. Has mild headache. No blurred vision, no earache, no runny nose, no sore throat. No rash seen. Because of ongoing illness, came to the ER. CAT scan of the abdomen and pelvis was also done as outpatient on 10/04/2019 because of history of diverticulosis. It is showing distended gallbladder, may represent early cholecystitis. Today in the ER, had a temperature spike of 37.8. White count is normal. Blood pressure was on lower side and improved with fluids. Platelets improved to 149, hemoglobin 12.2. ESR 57. Venous blood gases are okay. Lactate was 0.8, AST was 35, ALT was 120, alkaline phosphatase 139. C-reactive protein 18. Procalcitonin 0.4, lipase 174. Lyme screen came back as negative and again repeat COVID test came back negative. Influenza A and B were negative. There is a question of tick-borne illness. The patient says because of the lock down, he was able to spend more time at home and helping his in the gardening work. [place]. He removed ticks about 4 years ago from his body, but at this time he did not see any ticks in his body, but he noticed 3 or 4 insect bites, not sure whether they are ticks or not. Currently, the patient received Rocephin and doxycycline and fluids in the ER and currently resting comfortably. Admission Exam Per Admitting Provider GENERAL: The patient is of moderate build, not in acute distress. VITAL SIGNS: Temperature T-max 37.8, pulse 95, respiratory rate 20, blood pressure 132/76, oxygen 97% on room air. HEENT: No pallor, no icterus. Pupils equal, round, and reactive to light. NECK: No JVD, no masses, no carotid bruit. CARDIOVASCULAR: S1, S2 heard, regular rate and rhythm, no murmur, no gallop. RESPIRATORY SYSTEM: Normal AP diameter. No accessory muscle use. No wheezing, no crackles. ABDOMEN: Soft, bowel sounds present, nontender. No distention, no guarding, no rigidity. CENTRAL NERVOUS SYSTEM: Cranial nerves II-XII grossly intact. Nonfocal. EXTREMITIES: No edema, no erythema. Principal Diagnosis Anaplasmosis Discharge Exam Constitutional well developed, well nourished and + ill appearing; no acute distress Eyes PERRL, conjunctivae normal, anicteric sclerae ENMT external ear and nose normal, oropharynx normal Neck trachea midline, no thyromegaly Respiratory normal respiratory effort, lungs clear to auscultation normal respiratory effort; no respiratory distress Auscultation: lungs clear to auscultation bilaterally Cardiovascular Rate/Rhythm: regular rate and regular rhythm Heart Sounds: no murmur Gastrointestinal (Abdomen) Inspection/Auscultation: abdomen normal to inspection and normal bowel sounds; abdomen not distended Percussion/Palpation: abdomen soft; abdomen nontender Neurologic moves all extremities; no focal motor deficits Lymphatic no cervical or axillary lymphadenopathy Discharge Data Allergies Allergy/AdvReac Type Severity Reaction Status Date / Time No Known Allergies Allergy Verified 10/07/19 20:30 Consultations 10/07/19 21:45 ED Decision to Admit Stat 10/08/19 08:00 Consult General Surgery Routine Ordered Studies 10/07/19 21:32 US gallbladder Stat Hospital Course (1) Anaplasmosis: Presented with febrile illness for about 12 days Recent exposure to possible ticks and other insect Extremely tired with fever and chills Peripheral smear did show inclusion bodies suggestive of anaplasmosis Has been on intravenous doxycycline and ceftriaxone Clinically little bit better and will continue current medications Lot better today, no fever, weakness is improved We will get PT and send him home this afternoon (2) Sepsis: Possible sepsis at presentation with tachycardia, fever and neutropenia Blood culture grew gram-positive cocci in clusters 1 bottle Received 1 dose of intravenous vancomycin and awaiting further culture results No other infective source noted but CRP was elevated at 18.30 Blood culture grew coagulase-negative staph in 1 bottle Received 2 doses of IV vancomycin Is likely contaminant Will discontinue vancomycin (3) Transaminitis: Noted to have transaminitis with elevated ALT and alkaline phosphatase We will monitor-blood function is normalized DVT prophylaxis SCDs Total Time Total Time Spent Total Time Spent (In Minutes): 35 minutes Total Time Includes: Examination of the Patient, Discharge Planning, Medication Reconciliation and Communication With Other Providers Discharge Plan Discharge Items Patient Disposition: Home - Self-Care Reason For Visit: FEVERS Discharge Diagnosis: Anaplasmosis Condition on Discharge: Good Activity: Resume your previous activity Non-emergency contact: Primary Care Provider Call non-emergency contact if: you have any medication questions and your symptoms worsen Follow-up/Referrals: Esa Brothers MD [Primary Care Provider] - 10/12/19 12:20 pm (10/12/2019 12:20 PM Provider Natalya Tyler MD Department Internal Medicine [facility] ) Diet: Regular Addtl Attending Provider Instructions: Please finish your course of antibiotic Please take it easy for the next few days Drink more fluid Pending Studies at Discharge: Yes Studies:: Final blood culture report Stand-Alone Forms: My [place], Smoking Cessation Medications and DC Order Prescriptions: New doxycycline hyclate 100 mg capsule 100 mg PO BID 10 Days Qty: 20 RF: 0 Continued atorvastatin 20 mg tablet 20 mg PO HS RF: 0 Discharge Orders: Discharge Order (Routine); Ordered 10/09/19 Ordered By: Anel Pope Admission Data Admit Date/Time: 10/07/19 23:07 Attending Provider: Anel Pope Admit Provider: Ian De Jesus Primary Care Provider: Esa Brothers Other Providers: Ian De Jesus ; Christiano Olivier ; Rosemary Merino ; Keon Winston ; Maryam Cisneros ; Jackson Waite ; Kelvin Awan ; Libertad Robert ; Melvin Celaya ; Odalys Venegas ; Jose R Ma Jr ; Shad Atkins ; Corine Bolanos Other Interventions: Discharge Summary Assessment (RN) Last Done: 10/09/19 18:56 DC Date/Time DO NOT enter until pt leaves facility: 10/09/19 21:57
== END 2019-10-09 21:57 | disposition home or self-care (01) | DRG 869 ==
LOC: ED 18:14 → 3E 23:07